=== PATIENT | female | born 1945 | race Caucasian/White ===

== ENCOUNTER 2025-03-05 08:46 | Inpatient (IN) | payer MEDICARE, OTHER ==
[2025-03-05] VITALS (7 sets, daily range): BP systolic 139–174; BP diastolic 44–98
[~2025-03-05] VITALS: Ht 167.6 cm; Wt 109.9 kg
[2025-03-05 09:17] LABS: HEMATOCRIT 39.1 % (35.0-50.0); MCH 29.4 (27-36); MCHC 33.2 g/dl (30-36); MCV 88.6 fl (81-99); PLATELET COUNT 311 K/uL (140-440); RBC 4.41 M/ul (4.3-5.7); RDW 13.7 (10.5-15.0)
[2025-03-05 09:32] LABS: ALBUMIN 2.9 g/dL (3.4-5.0); ALBUMIN/GLOBULIN RATIO 0.74 (1.1-2.4); ANION GAP 8.5 (7-21); BILIRUBIN, TOTAL 1.1 mg/dL (0.2-1.0); BUN/CREATININE RATIO 30.35 (6.0-28.6); CALCIUM 10.3 mg/dL (8.5-10.1); CREATININE, SERUM 1.12 mg/dL (0.55-1.02); POTASSIUM 4.5 mmol/L (3.5-5.1); PROTEIN, TOTAL 6.8 g/dL (6.4-8.2)
[2025-03-05 09:34] LABS: BASOPHILS, MANUAL DIFF 3; EOSINOPHILS, MANUAL DIFF 5; LYMPHOCYTES, MANUAL DIFF 11; MONOCYTES, MANUAL DIFF 8; NEUTROPHILS, MANUAL DIFF 73
[2025-03-05] MEDS ORDERED: COZAAR100 MG PO (09:37)
[2025-03-05] MEDS ORDERED: FUROSEMIDE20 MG PO ×2 (09:37→09:38)
[2025-03-05] MEDS ORDERED: TOPROL XL100 MG PO (09:38)
[2025-03-05] MEDS ORDERED: ALLOPURINOL100 MG PO (09:39)
[2025-03-05] MEDS ORDERED: NORVASC5 MG PO (09:39)
[2025-03-05] MEDS ORDERED: LIPITOR20 MG PO (09:40)
[2025-03-05] MEDS ORDERED: CO Q-1050 MG PO (09:40)
[2025-03-05] MEDS ORDERED: NOVOLIN R100 UNIT/1 INJ (09:41)
[2025-03-05] MEDS ORDERED: TOUJEO MAX300 UNIT/1 SUB-Q (09:43)
[2025-03-05] MEDS ORDERED: FUROSEMIDE 100 MG/10 ML VIAL IV ONE (10:00)
--- NOTE | 2025-03-05 10:11 | EKG ---
[facility] [address] [facility] [place] [address] Signed AV dual-paced rhythm Abnormal ECG No previous ECGs available Confirmed by Sen Burdick MD ([id number]) on 03/05/2025 10:11:11 AM Electronically Signed By: SEN BURDICK MD 03/05/25 1011 PATIENT NAME: REBECCA ALMAGUER Electrocardiogram DATE OF : 41 PHYSICIAN: SEN BURDICK MD REPORT #: [id number] REPORT IS CONFIDENTIAL AND NOT TO BE RELEASED WITHOUT AUTHORIZATION
[2025-03-05] MEDS ORDERED: DEXTROSE 50% 50 ML SYR IV PRN ×2 (10:45)
[2025-03-05] MEDS ORDERED: DEXTROSE 5% 1,000 ML IV PRN (10:45)
[2025-03-05] MEDS ORDERED: GLUCAGON,HUMAN RECOMBINANT 1 MG/ML VIAL SUB-Q PRN (10:45)
[2025-03-05] MEDS ORDERED: IBLOOD GLUCOSE TEST STRIP 1 EA TEST XX PRN (10:45)
--- NOTE | 2025-03-05 11:00 | NUR ---
trceived pt from ed report given at bedside, pt up tot he bathroom tolerated activiy well. admitt process completed.
[2025-03-05] MEDS ORDERED: ACETAMINOPHEN 325 MG TAB PO PRN (11:15)
[2025-03-05] MEDS ORDERED: ondansetron HCL 4 MG/2 ML VIAL IV PRN (11:15)
--- NOTE | 2025-03-05 11:55 | NUR ---
PATIENT IN BED AT THIS TIME. METAL MACHINE OPERATOR ASSISTED PATIENT TO BATHROOM AND THEN BACK TO BED. CALL LIGHT WITHIN REACH, NO FURTHER NEEDS AT THIS TIME.
[2025-03-05] MEDS ORDERED: IBLOOD GLUCOSE TEST STRIP 1 EA TEST XX SCH (12:00)
[2025-03-05] MEDS ORDERED: INSULIN LISPRO 100 UNIT/ML ML SUB-Q SCH (12:00)
[2025-03-05] MEDS ORDERED: PHARMACY RENAL DOSE ADJUSTMENT 1 DOSE MISC PO SCH (12:00)
--- NOTE | 2025-03-05 12:14 | NUR ---
PT SITTING AT THE SIDE OF BED EATTING LUNCH AT THIS TIME. NO REQUEST AT THIS TIME, ON O2 AT 2L'S NC.
[2025-03-05] MEDS ORDERED: VENTOLIN HFA18 GM INH (12:47)
--- NOTE | 2025-03-05 13:01 | NUR ---
PT RACHEAL TOOK PICTURES OF ALL HER MEDICATIONS AND SENT THE PICTURES TO PT CELL PHONE AND WE UPDATED MEDICATION LIST
--- NOTE | 2025-03-05 13:30 | NUR ---
CRIMP SETTER HERE TO COMPLE ECHO THAT WAS ORDERED.
--- NOTE | 2025-03-05 14:04 | NUR ---
BRUSH POLISHER REMAINS IN THE ROOM AT THIS TIME.
[2025-03-05] MEDS ORDERED: ALBUTEROL SULFATE 0.083% 3 ML VIAL INH PRN (14:15)
--- NOTE | 2025-03-05 14:28 | NUR ---
PATIENT UP TO BATHROOM TO VOID, SITTING AT BEDSIDE, ALL LIGHT WITHIN REACH.
[2025-03-05] MEDS ORDERED: TOUJEO SOL300 UNIT/1 SUB-Q (15:21)
[2025-03-05] MEDS ORDERED: FUROSEMIDE40 MG (15:22)
--- NOTE | 2025-03-05 16:16 | NUR ---
PT ASLEEP IN BED, RRR AND SIDE RAILS UP CALL LIGHT WITHIN REACH
--- NOTE | 2025-03-05 16:45 | NUR ---
PT UP TO BATHROOM VOIDED AND THEN UP TO THE CHAIR. VOIDED CLEAR YELLOW URINE IN COLOR. PT STATES I FEEL BETTER.
--- NOTE | 2025-03-05 17:54 | NUR ---
PT TOLERATED DINNER WELL, UP IN CHAIR, RT NOTIFIED ABOUT PT AWAKE AND CPAP IS IN THE BUILDING.
--- NOTE | 2025-03-05 19:26 | NUR ---
RECEIVED REPORT FROM FRED JOHNSON. PATIENT SITTING UPRIGHT IN CHAIR, FRIEND IN ROOM WITH PATIENT. PATIENT DENIES ANY CURRENT NEEDS, CALL LIGHT IN REACH.
[2025-03-05] MEDS ORDERED: INSULIN GLARGINE-YFGN 100 UNIT/ML ML SUB-Q SCH (21:00)
--- NOTE | 2025-03-05 21:23 | NUR ---
VS OBTAINED AND RECORDED. ASSESSMENT COMPLETED, PATIENT AMBULATED WELL TO RESTROOM WITH MINIMAL SBA AND USE OF FWW. BACK TO BED WITHOUT DIFFICULTY. PATIENT SITTING UPRIGHT IN BED READING BOOK, SCHEDULED MEDS ADMIN PER ORDER. DENIES FURTHER NEEDS, CALL LIGHT IN REACH
--- NOTE | 2025-03-05 22:20 | NUR ---
CALL LIGHT ANSWERED, PATIENT REPORTS SHE IS READY TO GO TO BED, NEEDS CPAP FITTED. RT CONTACTED.
--- NOTE | 2025-03-05 23:04 | NUR ---
REBECCA HAS A HOME RESMED CPAP AUTO 5-20. RT REPLACED THE FILTER, WATER CHAMBER, AND NASAL MASK THE FILTER WAS HEAVILY SOILED, THE WATER CHAMBER WAS RUSTED, AND THE NASAL MASK WAS EXTREMELY DIRTY...CLEANING DID NOT HELP.
--- NOTE | 2025-03-05 23:30 | NUR ---
PATIENT RESTING WITH EYES CLOSED, RESP EVEN AND UNLABORED. NO NEEDS IDENTIFIED, CALL LIGHT IN REACH.
[2025-03-06] VITALS (11 sets, daily range): BP systolic 147–157; BP diastolic 34–83
--- NOTE | 2025-03-06 01:15 | NUR ---
CALL LIGHT ANSWERED. PATIENT REQUESTED FOR SCD TO BE REMOVED, STATES "I AM NOT ABLE TO SLEEP WHEN THEY KEEP SQUEEZING ME". EDUCATION PROVIDED REGARDING USE OF SCD. PATIENT REMAINS REQUESTING THEY BE TURNED OFF. VS OBTAINED AND RECORDED. DENIES OTHER NEEDS. CPAP IN PLACE. CALL LIGHT IN REACH.
--- NOTE | 2025-03-06 02:16 | NUR ---
CALL LIGHT ANSWERED, PATIENT UP TO RESTROOM TO VOID, RETURNED TO BED WITHOUT DIFFICULTY USING FWW AND MINIMAL SBA. PATIENT WISHES TO SIT ON EDGE OF BED AND READ HER BOOK. SHE REPORTS THAT SHE FEELS SHE IS HAVING AN EASIER TIME BREATHING, CLOSER TO HER BASELINE BUT NOT QUITE NORMAL. NC PLACED ON PATIENT AT 1L. GIVEN JELLO PER REQUEST. NO OTHER NEEDS, CALL LIGHT IN REACH. BED ALARM ON.
--- NOTE | 2025-03-06 02:41 | NUR ---
PATIENT REMAINS SITTING AT EDGE OF BED AND READING HER BOOK. NC IN PLACE, 1L. DENIES ANY NEEDS, CALL LIGHT IN REACH. BED ALARM ON.
--- NOTE | 2025-03-06 03:23 | NUR ---
ASSISTED PATIENT BACK INTO BED. PATIENT WAS SITTING AT THE EDGE OF THE BED READING HER BOOK, SHE FEELS SHE IS READY TO GET SOME MORE SLEEP. BACK IN BED WITHOUT DIFFICULTY, PATIENT REFUSED TO WEAR SCD'S. LUNG SOUNDS AUSCULTATED. PATIENT REPORTS SHE IS FEELING IMPROVED. ASSISTED PATIENT WITH CPAP MASK APPLICATION, PATIENT DECLINES OTHER NEEDS. CALL LIGHT IN REACH.
[2025-03-06 05:29] LABS: BASOPHILS 0.7 % (0-2); HEMATOCRIT 33.2 % (35.0-50.0); HEMOGLOBIN 11.3 g/dL (12.0-18.0); LYMPHOCYTES 12.9 % (24-44); MCH 29.6 (27-36); MCV 87.1 fl (81-99); MONOCYTES 14.9 % (0-12); NEUTROPHILS 66.5 % (39-80); PLATELET COUNT 278 K/uL (140-440); RBC 3.81 M/ul (4.3-5.7); RDW 13.4 (10.5-15.0)
[2025-03-06 05:45] LABS: ANION GAP 8.2 (7-21); BUN/CREATININE RATIO 32.23 (6.0-28.6); CREATININE, SERUM 1.21 mg/dL (0.55-1.02); MAGNESIUM 1.6 mg/dL (1.8-2.4); POTASSIUM 4.2 mmol/L (3.5-5.1)
--- NOTE | 2025-03-06 05:57 | NUR ---
VS OBTAINED AND RECORDED. PATIENT SITTING UP TO EDGE OF BED, LIGHTS ON, PLANS TO READ BOOK. NC AT 1L. PATIENT DECLINES NEEDS AT THIS TIME, CALL LIGHT WITHIN REACH.
--- NOTE | 2025-03-06 07:30 | NUR ---
report received from dakota carvajal. pt sitting on side of bed, denies needs att.
--- NOTE | 2025-03-06 07:54 | NUR ---
PATIENT UP TO CHAIR, SBA FWW. LINENS CHANGED. CALL LIGHT IN REACH. NO FURTHER NEEDS AT THIS TIME.
[2025-03-06] MEDS ORDERED: MAGNESIUM SULFATE 2 GM/50 ML BAG IV SCH (08:00)
[2025-03-06] MEDS ORDERED: ENOXAPARIN SODIUM 40 MG/0.4 ML SYR SUB-Q SCH (09:00)
[2025-03-06] MEDS ORDERED: FUROSEMIDE 40 MG/4 ML VIAL IV SCH (09:00)
[2025-03-06] MEDS ORDERED: ASPIRIN325 MG PO (10:01)
[2025-03-06] MEDS ORDERED: CLARITIN10 MG PO (10:01)
--- NOTE | 2025-03-06 10:03 | NUR ---
MED REC COMPLETE
--- NOTE | 2025-03-06 10:41 | NUR ---
PATIENT SITTING UP IN CHAIR TALKING WITH VISITOR. VITALS AND I&O'S DONE AND CHARTED. FRESH WATER GIVEN. CALL LIGHT IN REACH. NO FURTHER NEEDS AT THIS TIME.
--- NOTE | 2025-03-06 11:46 | NUR ---
REDRESSED PT IV IT WAS LEAKING. PT WANTED TO TRY A NEW DRESSING FIRST SHE IS SL MOST OF THE TIME. HAS FRIEND IN ROOM AND DENIES FURTHER NEEDS.
--- NOTE | 2025-03-06 11:53 | NUR ---
INTO SEE PATIENT. PERSONAL HEALTH INFORMATION REVIEWED. PATIENT LIVES WITH FRIEND IN [place]. PATIENT LIVES IN A HOUSE 3 STEPS. PATIENT USES WALKER, CANE. PATIENT USES A CPAP FROM [facility] IN [facility]. [facility]SCAR DOES NOT DRIVE. FRIEND TO TAKE HER HOME AT TIME OF DISCHARGE. PATIENT DENIES DIFFCULTY WITH UTILITIES OR OBTAINING FOOD. PATIENT DENIES NEEDS FROM CM AT THIS TIME.
--- NOTE | 2025-03-06 12:56 | NUR ---
Pt up in chair, family/friend at bedside. Questions answered about insulin and long acting insulin. 1u insulin given in pt's right arm, SQ. Pt and family/friend denied any needs at this time. Call light in reach.
--- NOTE | 2025-03-06 13:03 | NUR ---
UR CLINICAL REVIEW: 2MN MIRELLA, MEETS INPT FOR CHF EXACERBATION EDEMA, IV DIURETICS, CRACKLES IN LUNGS, ECHO NEEDED, TREND LABS MEDICARE INPT 03/05/25 @ 1030 ORDER MATCHES REG NO AUTH REQUIRED PER MEDICARE RULES DC TO HOME WHEN MEDICALLY STABLE.
--- NOTE | 2025-03-06 13:13 | NUR ---
PT SITTING UP IN CHAIR SPEAKING WITH FRIEND. PT DENIES CONCERNS ATT.
[2025-03-06] MEDS ORDERED: METOPROLOL SUCCINATE 100 MG TABCR PO SCH (13:54)
[2025-03-06] MEDS ORDERED: FUROSEMIDE 100 MG/10 ML VIAL IV ONE (14:00)
--- NOTE | 2025-03-06 17:28 | NUR ---
PT SITTING UP IN CHAIR EATING DINNER. DENIES CONCERNS.
--- NOTE | 2025-03-06 18:29 | NUR ---
PATIENT SITTING UP IN CHAIR AT THIS TIME. I&O'S CHARTED. FRESH WATER GIVEN. CALL LIGHT IN REACH. NO FURTHER NEEDS AT THIS TIME.
--- NOTE | 2025-03-06 19:24 | NUR ---
REPORT RECEIVED FROM DAYSHIFT RN. PATIENT LAYING ON BACK IN BED, READING BOOK. REPORTS THAT SHE IS FEELING IMPROVED AND BREATHING EASY. NC IN PLACE. PATIENT DECLINES ANY NEEDS, CALL LIGHT IN REACH.
--- NOTE | 2025-03-06 20:45 | NUR ---
VS OBTAINED AND RECORDED, ASSESSMENT COMPLETE. SCHEDULED MEDS ADMINISTERED PER ORDER. PATIENT FEELS THAT SHE HAS HAD GREAT IMPROVEMENT AND FEELS THAT SHE IS BREATHING EASIER, ON 1L NC. DENIES FURTHER NEEDS AT THIS TIME, CALL LIGHT IN REACH.
--- NOTE | 2025-03-06 22:17 | NUR ---
CALL LIGHT ANSWERED, PATIENT UP TO RESTROOM WITH MINIMAL SBA, AND USE OF WALKER. BACK TO BED WITHOUT DIFFICULTY. ASSISTED PATIENT WITH CPAP APPLICATION FOR SLEEP. DENIES ANY NEEDS, CALL LIGHT IN REACH
--- NOTE | 2025-03-06 23:42 | NUR ---
CALL LIGHT ANSWERED. PATIENT REPORTS THAT SHE IS HAVING ISSUES WITH HER CPAP AND DOES NOT LIKE THE WAY IT FITS. RN ADJUSTED STRAPS OF CPAP, PATIENT REPORTS THAT IT STILL DOES NOT FIT RIGHT. RT CONTACTED. RT GARTH CAME AND SWITCHED OUT THE MASK OF THE CPAP, PATIENT IS SATISFIED WITH THIS. PATIENT REQUESTING TO SIT UP AT EDGE OF BED. SHE WILL CALL WHEN SHE IS READY TO GET BACK TO BED. NO FURTHER NEEDS, CALL LIGHT IN REACH
--- NOTE | 2025-03-07 00:20 | NUR ---
CALL LIGHT ANSWERED, PATIENT REQUESTED FOR LIGHTS TO BE TURNED OFF. READY TO SLEEP. CPAP ON, 1L O2 CONNECTED TO CPAP. PATIENT DENIES NEEDS, CALL LIGHT IN REACH
--- NOTE | 2025-03-07 03:12 | NUR ---
ROUNDED ON PATIENT, PATIENT RESTING WITH EYES CLOSED, RESPIRATIONS EVEN AND UNLABORED. CPAP IN PLACE, NO NEEDS IDENTIFIED, CALL LIGHT IN REACH
--- NOTE | 2025-03-07 04:12 | NUR ---
WARM BLANKET PROVIDED PER REQUEST. NO FURTHER NEEDS.
--- NOTE | 2025-03-07 05:21 | NUR ---
PATIENT RESTING WITH EYES CLOSED, RESP EVEN AND UNLABORED. WEARING CPAP TO SLEEP, NO FURTHER NEEDS, CALL LIGHT IN REACH
[2025-03-07 05:32] LABS: BASOPHILS 0.9 % (0-2); EOSINOPHILS 8.2 % (0-6); HEMATOCRIT 32.9 % (35.0-50.0); HEMOGLOBIN 11.4 g/dL (12.0-18.0); LYMPHOCYTES 12.9 % (24-44); MCH 30.2 (27-36); MCHC 34.6 g/dl (30-36); MCV 87.2 fl (81-99); MONOCYTES 14.9 % (0-12); NEUTROPHILS 63.1 % (39-80); PLATELET COUNT 281 K/uL (140-440); RBC 3.77 M/ul (4.3-5.7); RDW 13.7 (10.5-15.0)
[2025-03-07 05:42] VITALS: BP 144/46
[2025-03-07 05:45] LABS: ANION GAP 0.1 (7-21); BUN/CREATININE RATIO 35.96 (6.0-28.6); CALCIUM 9.9 mg/dL (8.5-10.1); CREATININE, SERUM 1.14 mg/dL (0.55-1.02); MAGNESIUM 2.2 mg/dL (1.8-2.4); POTASSIUM 4.1 mmol/L (3.5-5.1)
[2025-03-07 05:46] VITALS: BP 144/46
--- NOTE | 2025-03-07 05:51 | NUR ---
VS OBTAINED AND RECORDED. LUNG SOUNDS AUSCULTATED, ASSESSMENT UNCHANGED. PATIENT SITTING UP TO SIDE OF BED, LIGHTS TURNED ON FOR PATIENT TO READ. NO NEEDS, CALL LIGHT IN REACH. DAILY WEIGHT OBTAINED.
--- NOTE | 2025-03-07 06:08 | NUR ---
PATIENT TRIALED ON ROOM AIR, PATIENT SPO2 89%. 1L NC PLACED ON PATIENT, SPO2 IMPROVED TO 93%. PATIENT SITTING AT EDGE OF BED, PATIENT DENIES ANY NEEDS, CALL LIGHT IN REACH
--- NOTE | 2025-03-07 07:19 | NUR ---
VERBAL REPORT RECEIVED FROM ELIZABETH LUIS. PT RESTS IN BED WITH EYES CLOSED, RESPS EVEN AND UNLABORED.
[2025-03-07 07:59] VITALS: BP 151/66
[2025-03-07 08:02] VITALS: BP 151/66
--- NOTE | 2025-03-07 08:48 | NUR ---
SPO2 93% ON RA. DENIES SOB.
[2025-03-07] MEDS ORDERED: INSULIN GLARGINE-YFGN 100 UNIT/ML ML SUB-Q SCH (09:00)
[2025-03-07 09:11] VITALS: BP 149/59
[2025-03-07] MEDS ORDERED: LASIX40 MG PO (09:28)
[2025-03-07] MEDS ORDERED: FUROSEMIDE 100 MG/10 ML VIAL IV ONE (09:45)
--- NOTE | 2025-03-07 09:48 | NUR ---
Education completed on new diagnosis of CHF. Reviewed [facility] Get with the guidelines heart failure book with pt and pt family member. Pt verbalized understanding and had no questions at this time. Pt aware if she has more questions to ask her nurse or request for cardiopulmonary nurse to return to room to answer questions.
--- NOTE | 2025-03-07 10:02 | NUR ---
Today I find Sheree up in her chair visiting with her "niece". Sheree is oriented to person, place and time, and answers questions appropriately. [facility] letter is explained to Sheree and her questions are answered. Sheree states that she is ready to go home today and shares "the sooner the better, I feel ready to go." Sheree voluntarily waiveds the 4 hour wait rule as documented on the [facility] letter. A signed copy of the letter is provided to Sheree. When asked about her care Sheree states "The care has been wonderful, the food is aweful." Sheree has no further questions or concerns for this RN at this time.
--- NOTE | 2025-03-07 10:45 | NUR ---
VISITED [facility]. PT IN OVERALL GOOD SPIRITS, WAITING FOR RIDE. NO IMMEDIATE NEEDS. ELECTRICAL PARTS RECONDITIONER PROVIDED SUPPORTIVE PRESENCE, HOSPITALITY, PRAYER. PT EXPRESSED GRATITUDE.
== END 2025-03-07 10:50 | disposition home or self-care (01) | DRG 291 ==
LOC: ED 08:46 → MS 10:30
PROVIDERS: Emergency Medicine; ADMIT Student in an Organized Health Care Education/Training Program; ATTEND Student in an Organized Health Care Education/Training Program
DX: I13.0 Hypertensive heart and chronic kidney disease with heart failure and stage 1 through stage 4 chronic kidney disease, or unspecified chronic kidney disease (principal); I50.33 Acute on chronic diastolic (congestive) heart failure; E78.5 Hyperlipidemia, unspecified; M10.9 Gout, unspecified; E11.22 Type 2 diabetes mellitus with diabetic chronic kidney disease; N18.9 Chronic kidney disease, unspecified; Z95.0 Presence of cardiac pacemaker; Z95.2 Presence of prosthetic heart valve; I27.20 Pulmonary hypertension, unspecified; I08.1 Rheumatic disorders of both mitral and tricuspid valves; E66.9 Obesity, unspecified; Z88.8 Allergy status to other drugs, medicaments and biological substances; Z88.5 Allergy status to narcotic agent; Z79.899 Other long term (current) drug therapy; Z79.4 Long term (current) use of insulin
CPT/HCPCS: 36415; 71045; 80048; 80053; 83036; 83735; 83880; 84484; 85025; 93005; 93010; 93306; 94640; 94760; 97161; 97165; 97530; A9270; J1650; J1815; J3475